=== PATIENT | female | born 1985 | race Caucasian/White ===

== ENCOUNTER 2017-04-17 05:08 | Inpatient (IN) | payer OTHER ==
[2017-04-17] MEDS ORDERED: AMPICILLIN SODIUM 2 GM in NS 100 ML IV ONE (05:19)
[2017-04-17] MEDS ORDERED: TERBUTALINE SULFATE 1 MG/ML VIAL IV PRN (05:19)
[2017-04-17] MEDS ORDERED: OXYTOCIN/RINGERS LACTATE 1,000 ML IV PRN (05:19)
[2017-04-17] MEDS ORDERED: EPSOM SALT 454 GM TP PRN (05:19)
[2017-04-17] MEDS ORDERED: LR 1,000 ML IV PRN (05:19)
[2017-04-17] MEDS ORDERED: OLIVE OIL 118 ML BTL MISC PRN (05:19)
[2017-04-17 05:59] LABS: % IMMATURE GRANULYOCYTES 1.6 % (0.0-1.1); ABSOLUTE IMMATURE GRANULOCYTES 0.21 10^3/uL (0.00-0.10); ADD DIFF? NO; ADD MORPH? NO; ADD SCAN? NO; ATYPICAL LYMPHOCYTE FLAG 0 (0-99); FRAGMENT RBC FLAG 0 (0-99); HEMATOCRIT 44.5 % (38.0-47.0); HEMOGLOBIN 15.2 g/dL (12.6-16.3); LEFT SHIFT FLG 10 (0-99); LIPEMIA HEMOLYSIS FLAG 90 (0-99); MEAN CELL HEMOGLOBIN 29.8 pg (27.9-34.1); MEAN CELL HEMOGLOBIN CONCENTR. 34.2 g/dL (32.4-36.7); MEAN CELL VOLUME 87.3 fL (81.5-99.8); MEAN PLATELET VOLUME 13.4 fL (8.7-11.7); PLATELET CLUMPS FLAG 0 (0-99); PLATELET COUNT 164 10^3/uL (150-400); RED CELL DISTRIBUTION WIDTH 13.1 % (11.5-15.2)
[2017-04-17] MEDS ORDERED: AMMONIA AROMATIC 1 EACH AMP IH ONE (06:46)
[2017-04-17] MEDS ORDERED: LIDOCAINE 1% 300 MG/30 ML SDV ONE (06:46)
[2017-04-17] MEDS ORDERED: OLIVE OIL 118 ML BTL ONE (06:46)
[2017-04-17] MEDS ORDERED: MISOPROSTOL 200 MCG TAB ONE (06:47)
[2017-04-17] MEDS ORDERED: TERBUTALINE SULFATE 1 MG/ML VIAL ONE (06:47)
[2017-04-17] MEDS ORDERED: OXYTOCIN 10 UNIT/ML VIAL ONE (06:47)
[2017-04-17] MEDS ORDERED: fentaNYL 2MCG/ML/BUP 0.1% RTU 100 ML BAG EP ONE (07:32)
[2017-04-17] MEDS ORDERED: BUPIVACAINE 0.25% 30 ML SDV ONE (07:32)
[2017-04-17] MEDS ORDERED: PHENYLEPHRINE HCL 100 MCG/ML SYR ONE (07:33)
[2017-04-17] MEDS ORDERED: fentaNYL 100 MCG/2 ML INJ ONE (07:34)
[2017-04-17] MEDS ORDERED: PHENYLEPHRINE HCL 100 MCG/ML SYR IVP PRN (07:56)
[2017-04-17] MEDS ORDERED: NALOXONE HCL 0.4 MG/ML INJ IVP PRN (07:56)
[2017-04-17] MEDS ORDERED: ONDANSETRON 4 MG/2 ML VIAL IVP PRN (07:56)
[2017-04-17] MEDS ORDERED: LR 500 ML IV SCH (08:00)
[2017-04-17] MEDS ORDERED: fentaNYL 2MCG/ML/BUP 0.1% RTU 100 ML EP SCH (08:00)
--- NOTE | 2017-04-17 08:05 | OBPROG ---
OBG Labor Progress Note Assessment/Plan: Assessment:cat 1 fhr pain well managed requesting an epidural for pain relief contractions q2-3 minutes apart spontaneous labor active labor intact bow Plan:epidural expectant management 04/17/17 08:02 Subjective: Feeling pain with the contractions became stronger at 0500 today requesting an epidural for pain relief Objective: 04/17/17 05:28 Patient ABO/Rh O POSITIVE 04/17/17 05:34 - SVE Dilation (cm): 4 Effacement (%): 80 Station: -1 - Physical Exam General Appearance: WD/WN, alert, no apparent distress Respiratory: chest non-tender, lungs clear, normal breath sounds Cardiac/Chest: regular rate, rhythm Abdomen: normal bowel sounds Extremities: normal range of motion, Kevin's sign (negative ) DTR- Lower Extremities: Knee (R): 1+, Knee (L): 1+ Skin: normal color, warm/dry Neuro/Psych: no motor/sensory deficits, alert, normal mood/affect, oriented x 3 Oxytocin Orders Assessment - Pre-Induction/Augmentation Assessment Gestational Age: 40 week(s) and 2 day(s) ICD10 Worksheet Patient Problems: Problems Problem Status Onset labor at term Acute
--- NOTE | 2017-04-17 08:06 | POSTANESTH ---
Post Anesthetic Evaluation Cardiovascular Status: Normal, Stable Respiratory Status: Normal, Stable Level of Consciousness/Mental Status: Can Participate in Eval Pain Control: Adequate, Prn Tx Ordered Nausea/Vomiting Control: Adequate, Prn Tx Ordered Complications Possibly Related to Anesthesia: None Noted
--- NOTE | 2017-04-17 08:33 | OBPROG ---
OBG Labor Progress Note Assessment/Plan: Assessment:cat 1 fhr pain well managed requesting an epidural for pain relief contractions q2-3 minutes apart spontaneous labor active labor intact bow 4/100/-1 on admission 10.100/0 now cephalic will wait for second dose of antibiotics to arom Plan:epidural expectant management 04/17/17 08:02 04/17/17 08:32 Objective: 04/17/17 05:28 Patient ABO/Rh O POSITIVE 04/17/17 05:34 - SVE Dilation (cm): 10 Effacement (%): 100 Station: 0 Oxytocin Orders Assessment - Pre-Induction/Augmentation Assessment Gestational Age: 40 week(s) and 2 day(s) ICD10 Worksheet Patient Problems: Problems Problem Status Onset labor at term Acute
--- NOTE | 2017-04-17 08:47 | GHP ---
[f rep st] HISTORY AND PHYSICAL DATE OF ADMISSION: 04/17/2017 HISTORY: The patient is a 31-year-old 1, para 0, with an EDC of 04/15/2017, which gives her a gestational age of 40 and 2/7 weeks. The patient comes in, in spontaneous labor, on 04/17/2017 w ith complaints of regular contractions since 3:00 a.m. on 04/17/2017. Denies rupture of membranes, positive bloody show. States feeling positive movement. The patient has been routinely seen at [facility] since 8 weeks and 4 days. Early ultrasound was completed that verified her due date. MEDICAL HISTORY: History of asthma, history of migraines. The patient has some depression history. SURGICAL HISTORY: Tonsillectomy and adenoidectomy. GYNECOLOGICAL HISTORY: Previous OCP use. SOCIAL HISTORY: Patient is to [facility]. Denies smoking, denies alcohol with the . De nies drug use. FAMILY HISTORY: Noncontributory. PHYSICAL ASSESSMENT: GENERAL: Patient is awake, alert, oriented x3. LUNGS: Clear bilaterally. A BDOMEN: Bowel sounds are positive in all 4 quadrants. EXTREMITIES: DTRs are 3+ bilaterally with n o clonus. Homans sign is negative bilaterally. LABS: Patient is O positive. Antibody negative. RPR is nonreactive. Rubella is immune. Hepatiti s is negative. HIV is negative. Pap was within normal limits. Urine was negative. Gonorrhea and chlamydia were negative. AFP was negative. Verifi was negative. 1-hour GTT was within normal limi ts. Patient is GBS positive. ALLERGIES: The patient is not allergic to any medications. MEDICATIONS: vitamins with folic acid and DHA. PLAN: 1. Antibiotics for GBS positive. 2. Expectant management of labor. 3. Medication for pain relief at patient's request. Epidural has been requested. 4. Consult physician as needed, Dr. Jing Askew, for plan of care. /[id number]/MODL
[2017-04-17] MEDS: AMPICILLIN SODIUM 1 GM in NS 100 ML IV SCH ×3 (09:59→18:24)
--- NOTE | 2017-04-17 10:18 | OBPROG ---
OBG Labor Progress Note Assessment/Plan: Assessment:cat 2 fhr pain well managed with epidural contractions q2-3 minutes apart transition arom clear fluid adequete ampicillin coverage 10.100/0 now cephalic pain level a 4 feeling small amount of pressure will wait for increased pressure before pushing Plan:expectant management of labor 04/17/17 08:02 04/17/17 08:32 04/17/17 10:16 Objective: 04/17/17 05:28 Patient ABO/Rh O POSITIVE 04/17/17 05:34 - SVE Dilation (cm): 10 Effacement (%): 100 Station: 0 - Procedures Non-surgical Procedures: Amniotomy Oxytocin Orders Assessment - Pre-Induction/Augmentation Assessment Gestational Age: 40 week(s) and 2 day(s) ICD10 Worksheet Patient Problems: Problems Problem Status Onset labor at term Acute
--- NOTE | 2017-04-17 11:40 | OBPROG ---
OBG Labor Progress Note Assessment/Plan: Assessment:cat 2 fhr pain well managed with epidural contractions q2-3 minutes apart transition arom clear fluid adequete ampicillin coverage 10.100/0 now cephalic pain level a 4 feeling small amount of pressure will wait for increased pressure before pushing attempt tpush several times with minimal change in position will start pitocin per protocol Plan:expectant management of labor/ pitocin per protocol 04/17/17 08:02 04/17/17 08:32 04/17/17 10:16 04/17/17 11:39 Objective: 04/17/17 05:28 Patient ABO/Rh O POSITIVE 04/17/17 05:34 - SVE Dilation (cm): 10 Effacement (%): 100 Station: 0 - Procedures Non-surgical Procedures: Amniotomy Oxytocin Orders Assessment - Pre-Induction/Augmentation Assessment Gestational Age: 40 week(s) and 2 day(s) ICD10 Worksheet Patient Problems: Problems Problem Status Onset labor at term Acute
[2017-04-17] MEDS ORDERED: OXYTOCIN/RINGERS LACTATE 500 ML IV SCH (12:00)
[2017-04-17] MEDS ORDERED: OXYTOCIN/LR *STANDARD DOSE PROTOCOL IV SCH (12:00)
--- NOTE | 2017-04-17 16:13 | OBDEL ---
Info Type: Vaginal GBS+: Yes (x3 doses) Antibiotic Used for + GBS: Ampicillin Number of Antibiotic Doses Given: 3 Indications for Delivery: Spontaneous Labor Vaginal Delivery - Labor and Delivery Onset of Contractions Date: 04/15/17 Onset of Contractions Time: 03:30 Onset of Contractions Type: Augmented Rupture of Membranes Date: 04/17/17 Rupture of Membranes Time: 10:10 Rupture of Membranes Type: Artificial Amniotic Fluid Color: Clear Dilation Complete Date: 04/17/17 Dilation Complete Time: 08:26 Placenta Delivery Date: 04/17/17 Placenta Delivery Time: 15:34 Total Hours of Labor: 60 Non-surgical Procedures: Amniotomy Laceration: Other (Specify) (right and left labial left repaired with 4.0 vicryl ) Repair: 4-0, Vicryl Vaginal Sponge Count Correct: Yes Vaginal Needle Count Correct: Yes Vaginal Sweep Performed: No EBL: 350 Delivery Events: None, Other (Specify) (compound presentation delivered with right arm) - Medications Labor Augmentation/Induction Methods Used: None Data Luna Delivery Date: 04/17/17 Delivery Time: 15:34 DAVID: 04/15/17 Gestational Age: 40 week(s) and 2 day(s) Sex of Infant: Female Score (1 Min): 8 Score (5 Min): 8 ICD10 Worksheet Patient Problems: Problems Problem Status Onset labor at term Acute
[2017-04-17] MEDS ORDERED: ACETAMINOPHEN 325 MG TAB PO PRN (16:22)
[2017-04-17] MEDS ORDERED: HYDROCODONE/APAP 5/325 TAB PO PRN (16:22)
[2017-04-17] MEDS ORDERED: SIMETHICONE 80 MG TAB CHEW PO PRN (16:22)
[2017-04-17] MEDS ORDERED: HYDROCORTISONE 0.5% CREAM TP PRN (16:22)
[2017-04-17] MEDS: IBUPROFEN 600 MG TAB PO PRN (18:14)
[2017-04-18] MEDS: IBUPROFEN 600 MG TAB PO PRN ×4 (00:09→21:27)
[2017-04-18] MEDS: DOCUSATE SODIUM 100 MG CAP PO PRN ×2 (08:52→21:27)
[2017-04-18 09:49] VITALS: RESP 18; O2SAT 96
--- NOTE | 2017-04-18 13:19 | OBPP ---
Progress Note Assessment/Plan: Assessment: ppd# 1 s/p breast feeding uncomplicated post course Plan: routine post care 04/18/17 13:17 Subjective: patient is doing well. pain is well controlled. normal lochia. denies headache and changes in vision. working on breast feeding. resting. Objective: 04/18/17 05:05 Patient ABO/Rh O POSITIVE 04/17/17 05:34 Temp Pulse Resp BP Pulse Ox 36.7 C 74 18 113/62 96 04/18/17 08:30 04/18/17 08:30 04/18/17 08:30 04/18/17 08:30 04/18/17 08:30 Physical Exam - Physical Exam General Appearance: WD/WN, alert, no apparent distress Respiratory: chest non-tender, lungs clear, normal breath sounds Cardiac/Chest: normal peripheral pulses, regular rate, rhythm Abdomen: normal bowel sounds, hypoactive bowel sounds Extremities: normal range of motion, non-tender, normal inspection, normal capillary refill Skin: normal color, warm/dry Neuro/Psych: no motor/sensory deficits, alert, normal mood/affect, oriented x 3
[2017-04-19] MEDS: IBUPROFEN 600 MG TAB PO PRN (05:15)
[2017-04-19] MEDS: DOCUSATE SODIUM 100 MG CAP PO PRN (08:58)
[2017-04-19 09:01] VITALS: BP 120/65; PULSE 64; TEMP 97.8
--- NOTE | 2017-04-19 10:55 | OBPP ---
Progress Note Assessment/Plan: Assessment: well nipples intact ff@u scant rubra lochia pain well managed voiding without difficulty taking stool softeners to assist with BM perineum approximated swelling in lower extremities 2-3+ bilaterally vs wnl Plan:discharge to home with instructions fu 4 weeks and 6 weeks. Discussed , pain management, pelvic rest, rest, depression, ss infections, bleeding pattern, pain resolution, ss infection, bleeding resolution and patternsexercise verbalized understanding of all of the above 04/17/17 08:02 04/17/17 08:32 04/17/17 10:16 04/17/17 11:39 04/19/17 10:50 Subjective: Doing well. Denies difficulties. PAin well managed. well. Ready to go home Objective: 04/18/17 05:05 Patient ABO/Rh O POSITIVE 04/17/17 05:34 Temp Pulse Resp BP Pulse Ox 36.6 C 64 18 120/65 96 04/19/17 08:00 04/19/17 08:00 04/19/17 08:00 04/19/17 08:00 04/19/17 08:00 Uterine Position/Fundal Height: At Umbilicus Uterine Tone: Firm Physical Exam - Physical Exam General Appearance: WD/WN, alert, no apparent distress Abdomen: other (ff@u/ scant rubra lochia/perineum approximated minimal swelling) Extremities: normal range of motion, Kevin's sign (negative bilaterally) DTR- Lower Extremities: Knee (R): 1+, Knee (L): 1+ (no clonus) Skin: normal color, warm/dry Neuro/Psych: no motor/sensory deficits, alert, normal mood/affect, oriented x 3
== END 2017-04-19 13:00 | disposition home or self-care (01) | DRG 775 ==
LOC: FLD 05:08 → FOB 18:17
PROVIDERS: ADMIT Obstetrics & Gynecology; ATTEND Obstetrics & Gynecology
PROC: 0UQMXZZ Repair Vulva, External Approach (ICD-10-PCS; principal; 2017-04-17)
PROC: 10E0XZZ Delivery of Products of Conception, External Approach (ICD-10-PCS; principal; 2017-04-17)
PROC: 10907ZC Drainage of Amniotic Fluid, Therapeutic from Products of Conception, Via Natural or Artificial Opening (ICD-10-PCS; 2017-04-17)
DX: O32.6XX0 Maternal care for compound presentation, not applicable or unspecified (principal); O63.1 Prolonged second stage (of labor); O70.0 First degree perineal laceration during delivery; O76 Abnormality in fetal heart rate and rhythm complicating labor and delivery; O99.824 Streptococcus B carrier state complicating childbirth; Z3A.40 40 weeks gestation of pregnancy; Z37.0 Single live birth
CPT/HCPCS: J0290; J2370; J3010; J3105